=== PATIENT | male | born 1965 | race Hispanic/Latino ===

== ENCOUNTER 2017-12-02 01:30 | Emergency (ER) | payer OTHER ==
[2017-12-02 01:43] VITALS: RESP 22
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
[2017-12-02 02:48] VITALS: BP 120/66; PULSE 76; TEMP 98.2
[2017-12-02 02:51] VITALS: O2SAT 97
== END 2017-12-02 02:38 | disposition home or self-care (01) ==
LOC: C.ER 01:30
DX: Z04.1 Encounter for examination and observation following transport accident (principal); I10 Essential (primary) hypertension